=== PATIENT | female | born 1945 | race Caucasian/White ===

== ENCOUNTER 2020-05-11 12:06 | Emergency (ER) | payer MEDICARE, SELFPAY ==
[2020-05-11 12:24] VITALS: BP 138/86; PULSE 62; RESP 18; TEMP 36.6; O2SAT 99
--- NOTE | 2020-05-11 12:26 | ED.RECABL ---
HPI - Recheck/Abnormal Lab/Rx General Chief Complaint: Recheck/Abnormal Lab/Rx Stated Complaint: oxygen stats low Time Seen by Provider: 05/11/20 12:26 Source: patient Mode of arrival: ambulatory Limitations: no limitations History of Present Illness HPI narrative: 75-year-old woman with a history of smoking comes in today at the behest of her doctor for low saturations. She was seen at her doctor's office today for a procedure and her sats there were around 80%. She denies any symptoms. She states that she has a cough from smoking however she denies fever, nausea, vomiting, diarrhea, shortness of breath, worse cough than usual, fatigue, headaches or body aches. She denies any sick exposures including no COVID exposures. Initial visit (ago): hour(s) (1-2) Initial visit for: other Symptoms since prior visit: no new symptoms Associated symptoms: none Related Data Allergies Allergy/AdvReac Type Severity Reaction Status Date / Time morphine Allergy Severe NAUSEA AND Verified 07/18/14 09:40 VOMITING hydrocodone Allergy Mild severe Verified 07/18/14 09:40 nausea and vomiting meperidine Allergy Mild Severe Verified 07/18/14 09:40 nausea and vomiting piroxicam Allergy Mild N/V Verified 07/18/14 09:40 propoxyphene Allergy Mild Verified 07/18/14 09:40 Review of Systems Constitutional: Constitutional: Denies chills, Denies fever(s) and Denies weakness Eyes: Eyes: Denies change in vision and Denies photophobia ENT: Denies dysphagia, Denies nasal congestion and Denies sore throat Cardiovascular: Cardiovascular: Denies chest pain and Denies radiating jaw, neck or arm pain Respiratory: Respiratory: Reports cough ( Chronic), Denies dyspnea and Denies wheezing Gastrointestinal: Gastrointestinal: Denies abdominal pain, Denies diarrhea, Denies nausea and Denies vomiting Genitourinary: Genitourinary: Denies hematuria and Denies dysuria Musculoskeletal: Musculoskeletal: Denies back pain, Denies arthralgias and Denies joint swelling Integumentary/Breasts: Skin/Breast: Denies pruritus, Denies erythema and Denies rash Neurologic: Denies dizziness, Denies headache(s) and Denies weakness Hematologic/Lymphatic: Hematologic/Lymphatic: Denies easy bleeding and Denies easy bruising Allergic/Immunologic: Allergic/Immunologic: Denies lip swelling and Denies tongue swelling PMF Past Medical History Medical History Arthritis History of ectopic Surgical History Surgical History H/O cataract extraction H/O hernia repair History of appendectomy History of bunionectomy History of colon resection Nicked during colonoscopy Hx of breast reduction, elective Social History Social History Smoking status: Current every day smoker Substance use: never Living arrangements: with family Exam Const: General: healthy appearing, no acute distress and alert Nutritional Appearance: obese Orientation/consciousness: patient oriented x3 Limitations: no limitations HENMT: Head: normal to inspection Ears: external ears normal, TM's normal bilaterally and EAC's normal General nose exam: Normal nares present Face and sinus: normal facial exam Mouth: Yes moist mucous membranes Throat: posterior oropharynx normal Eyes: Conjunctivae: conjunctivae normal Pupils: Equal, round and reactive pupils present EOM: EOMs intact bilaterally Neck: Neck: normal visual inspection and no lymphadenopathy Resp: Effort & Inspection: normal respiratory effort, not labored and no use of accessory muscles Auscultation: clear to auscultation bilaterally, no rales, no rhonchi and no wheezes Cardio: Rate: regular rate Rhythm: regular rhythm Heart sounds: no murmurs Skin: General skin exam: normal color, no jaundice and no pallor Rashes: no rashes Neuro: G
[2020-05-11] MEDS: ALBUTEROL SULFATE (*SP) INHALER 2 PUFF INHALATION (12:39)
[2020-05-11 13:05] VITALS: PULSE 62; RESP 18; O2SAT 98
== END 2020-05-11 13:05 | disposition home or self-care (01) ==
PROVIDERS: Emergency Provider Emergency Medicine; PCP Family Medicine
DX: R06.89 Other abnormalities of breathing (principal); F17.200 Nicotine dependence, unspecified, uncomplicated
CPT/HCPCS: 99282; A9270

== ENCOUNTER 2020-06-18 13:59 | Outpatient (CLI) | payer MEDICARE, SELFPAY ==
[2020-06-19 18:19] LABS: SARS-CoV-2 RNA PCR Negative
== END 2020-06-18 14:00 | disposition home or self-care (01) ==
LOC: CHSLAB 14:03
PROVIDERS: PCP Family Medicine; Visit Provider Family Medicine
DX: Z20.828 Contact with and (suspected) exposure to other viral communicable diseases (principal)
CPT/HCPCS: 87635; C9803; U0003

== ENCOUNTER 2020-07-20 09:53 | Outpatient (CLI) | payer MEDICARE, SELFPAY ==
[2020-07-20 10:13] LABS: Basophils Absolute Auto 0.02 K/mm3 (0.00-0.10); Basophils Percent Auto 0.3 % (0.0-1.0); Eosinophils Absolute Auto 0.03 K/mm3 (0.02-0.50); Eosinophils Percent Auto 0.4 % (1.0-6.0); Hematocrit 44.3 % (35.0-42.0); Hemoglobin 14.5 g/dL (11.7-13.8); Immature Granulocyte Absolute 0.03 K/mm3 (0.00-0.00); Immature Granulocyte Percent A 0.4 % (0.0-0.0); Immature Reticulocyte Fraction 10.9 % (2.0-16.52); Lymphocytes Absolute Auto 1.35 K/mm3 (1.10-4.50); Lymphocytes Percent Auto 17.8 % (18.0-42.0); Mean Corpuscular HGB Conc 32.7 g/dL (32.0-36.0); Mean Corpuscular Hemoglobin 29.8 pg (27.0-31.0); Mean Corpuscular Volume 91.2 fL (78.0-102.0); Monocytes Absolute Auto 0.63 K/mm3 (0.10-0.90); Monocytes Percent Auto 8.3 % (2.0-11.0); Neutrophils Absolute Auto 5.5 K/mm3 (1.7-7.2); Neutrophils Percent Auto 72.8 % (50.0-70.0); Platelet Count Result 295 K/mm3 (150-420); Red Blood Count 4.86 M/mm3 (4.20-5.40); Red Cell Distribution Width 13.2 % (11.6-14.4); Reticulocyte Hemoglobin Conten 34.7 pg (28.0-35.0); Reticulocyte Percent 1.63 % (0.50-1.50); Reticulocytes Absolute 0.08 M/mm3 (0.02-0.1); White Blood Count 7.6 K/mm3 (4.8-10.8)
[2020-07-20 10:21] LABS: Creatinine Urine 222.58 mg/dL (40-278); MALB Creatinine Ratio 5.8 mg/g (0-30); Microalbumin Urine Random < 13.0 mg/L
[2020-07-20 11:34] LABS: Alanine Aminotransferase 34 U/L (14-59); Alkaline Phosphatase 121 U/L (46-116); Anion Gap 8 mmol/L (8-16); Aspartate Amino Transferase 28 U/L (15-37); Bilirubin,Total 0.4 mg/dL (0.00-1.00); Blood Urea Nitrogen 10 mg/dL (7-18); Calcium 9.4 mg/dL (8.5-10.1); Carbon Dioxide 30 mmol/L (21-32); Chloride 102 mmol/L (98-108); Cholesterol 194 mg/dL (0-200); Estimated Glomerular Filt Rate > 60; Ferritin 83 ng/mL (8-252); Free T4 Free Thyroxine 1.23 ng/dL (0.76-1.46); Glucose 77 mg/dL (70-99); HDL Direct 78 mg/dL (40-60); Iron 69 ug/dL (50-170); LDL Cholesterol Calculated 93 mg/dL (<130); Lactate Dehydrogenase 242 U/L (81-234); Osmolality Calculated 288 mOsm/kg (285-295); Percent Iron Saturation 19 % (12-57); Potassium 3.9 mmol/L (3.5-5.1); Sodium 140 mmol/L (136-145); Thyroid Stimulating Hormone 1.58 uIU/mL (0.36-3.74); Total Protein 7.1 g/dL (6.4-8.2); Triglycerides 115 mg/dL (0-150); Vitamin B12 693 pg/mL (193-986)
[2020-07-20 12:01] LABS: Folic Acid > 20.0 ng/mL (8.6->20)
[2020-07-23 16:12] LABS: Total Triiodothyronine (T3) 105.4 ng/dL (76-181)
[2020-07-24 13:29] LABS: Vitamin D 25 Hydroxy 46 ng/mL (30-100)
[2020-07-26 05:12] LABS: Transferrin 299 mg/dL (188-341)
== END 2020-07-20 09:54 | disposition home or self-care (01) ==
PROVIDERS: PCP Family Medicine; Visit Provider Nurse Practitioner Family
DX: R41.3 Other amnesia (principal); R03.0 Elevated blood-pressure reading, without diagnosis of hypertension; E78.00 Pure hypercholesterolemia, unspecified; D64.9 Anemia, unspecified; E55.9 Vitamin D deficiency, unspecified; R53.83 Other fatigue
CPT/HCPCS: 36415; 80053; 80061; 82043; 82306; 82607; 82728; 82746; 83540; 83550; 83615; 84439; 84443; 84466; 84480; 85025; 85046; 88321

== ENCOUNTER 2020-10-01 10:46 | Outpatient (CLI) | payer MEDICARE, SELFPAY ==
--- NOTE | ~2020-10-01 | XR_ITS ---
EXAMINATION: XR knee LT min 4V DATE: 10/01/2020 11:11 INDICATION: Left knee pain. TECHNIQUE: 4 views of left knee were obtained. COMPARISON: Left knee radiographs 04/19/2009 FINDINGS: There is varus angulation at left knee. No fracture. There is severe osteoarthritis of late ral and patellofemoral compartments and mild osteoarthritis of medial compartment. There is a small k nee joint effusion. IMPRESSION: 1. Severe left knee osteoarthritis. 2. Small left knee joint effusion. Reviewed, dictated and finalized at location A.
== END 2020-10-01 10:47 | disposition home or self-care (01) ==
LOC: ANHIMG 10:47
PROVIDERS: PCP Family Medicine; Visit Provider Nurse Practitioner
DX: M17.12 Unilateral primary osteoarthritis, left knee (principal); M25.462 Effusion, left knee
CPT/HCPCS: 73564